=== PATIENT | female | born 1980 | race Caucasian/White ===

== ENCOUNTER 2020-10-03 21:53 | Inpatient (IN) | payer BC ==
[~2020-10-03] VITALS: Ht 167.6 cm; Wt 71.8 kg
[2020-10-03] MEDS ORDERED: MISOPROSTOL 200 MCG TABLET ONE (22:09)
[2020-10-03] MEDS ORDERED: LIDOCAINE 1%, 20ML ONE (22:09)
[2020-10-03] MEDS ORDERED: NEWBORN KIT ONE (22:09)
[2020-10-03] MEDS ORDERED: OXYTOCIN 30U/ 0.9% NaCL 500ML 500 ML ONE (22:09)
[2020-10-03] MEDS ORDERED: D5%-LACTATED RINGERS 1,000 ML IV SCH (22:30)
[2020-10-03] MEDS ORDERED: ONDANSETRON 2MG/ML, 2ML IVPush PRN (22:30)
[2020-10-03] MEDS ORDERED: FENTANYL PF 100 MCG/2ML IVPush PRN (22:30)
[2020-10-03] MEDS ORDERED: FENTANYL PF 100 MCG/2ML IV PRN (22:30)
[2020-10-03] MEDS ORDERED: TERBUTALINE 1 MG/ML, 1ML IVPush PRN (22:30)
[2020-10-03] MEDS ORDERED: PENICILLIN GK 2,500,000 UNITS in DEXTROSE 5% 100 ML IVPB SCH (22:30)
[2020-10-03] MEDS ORDERED: TERBUTALINE 1 MG/ML, 1ML SQ PRN (22:30)
[2020-10-03] MEDS ORDERED: PENICILLIN GK 5,000,000 UNITS in DEXTROSE 5% 100 ML IVPB ONE (22:30)
[2020-10-03] MEDS ORDERED: LACTATED RINGERS 1,000 ML IV SCH (22:30)
[2020-10-03 22:35] LABS: BASOPHILS % (AUTO) 0 % (0-1); EOSINOPHILS % (AUTO) 0 % (1-7); LYMPHOCYTES % (AUTO) 4 % (22-44); MD NO; MEAN CORPUSCULAR HEMOGLOBIN 32.5 pg (27.0-34.8); MEAN CORPUSCULAR HGB CONC 34.6 g/dL (32.4-35.8); MEAN PLATELET VOLUME 8.4 fL (7.4-10.4); MONOCYTES % (AUTO) 4 % (2-9); NEUTROPHILS % (AUTO) 92 % (42-75); PLATELET COUNT 223 x10^3/uL (130-400); RED CELL DISTRIBUTION WIDTH 13.3 % (9.6-15.2)
[2020-10-03] MEDS: OXYTOCIN 30U/ 0.9% NaCL 500ML 500 ML IV SCH (23:23)
[2020-10-04] MEDS ORDERED: OXYcodone IR 5MG TABLET PO PRN
[2020-10-04] MEDS ORDERED: ACETAMINOPHEN 325 MG TABLET PO PRN
[2020-10-04] MEDS ORDERED: ONDANSETRON 2MG/ML, 2ML IV PRN
[2020-10-04] MEDS ORDERED: MISOPROSTOL 200 MCG TABLET PR PRN
[2020-10-04] MEDS ORDERED: SIMETHICONE 80 MG CHEW TAB PO PRN
[2020-10-04] MEDS: IBUPROFEN 800 MG TABLET PO PRN (00:11)
[2020-10-04] MEDS: OXYTOCIN 30U/ 0.9% NaCL 500ML 500 ML IV SCH ×11 (01:19→13:24)
[2020-10-04 02:15] VITALS: BP 125/82
[2020-10-04 06:05] VITALS: BP 118/80
[2020-10-04 07:24] LABS: BASOPHILS % (AUTO) 1 % (0-1); EOSINOPHILS % (AUTO) 0 % (1-7); LYMPHOCYTES % (AUTO) 7 % (22-44); MEAN CORPUSCULAR HEMOGLOBIN 32.4 pg (27.0-34.8); MEAN CORPUSCULAR HGB CONC 34.2 g/dL (32.4-35.8); MONOCYTES % (AUTO) 7 % (2-9); NEUTROPHILS % (AUTO) 85 % (42-75); PLATELET COUNT 203 x10^3/uL (130-400); RED BLOOD COUNT 3.11 x10^6/uL (3.82-5.3)
[2020-10-04 07:56] LABS: MD SCAN
[2020-10-04 08:00] VITALS: BP 116/72
[2020-10-04] MEDS: DOCUSATE 100 MG CAPSULE PO PRN (08:09)
[2020-10-04] MEDS: PRENATAL VIT/IRON/FA 1 EACH TABLET PO SCH (08:20)
[2020-10-04 12:00] VITALS: BP 117/77
[2020-10-04 16:00] VITALS: BP 114/72
[2020-10-04 20:30] VITALS: BP 115/67
[2020-10-05] VITALS: BP 112/68
[2020-10-05 07:35] VITALS: BP 108/65
[2020-10-05] MEDS: PRENATAL VIT/IRON/FA 1 EACH TABLET PO SCH (09:00)
[2020-10-05] MEDS ORDERED: IBUP-1223 PO (09:02)
[2020-10-05] MEDS ORDERED: DOCU-131 PO (09:03)
[2020-10-05] MEDS: IBUPROFEN 800 MG TABLET PO PRN ×2 (10:55→18:32)
[2020-10-05] MEDS: DOCUSATE 100 MG CAPSULE PO PRN (10:55)
== END 2020-10-05 18:20 | disposition home or self-care (01) | DRG 768 ==
LOC: LDOP 21:53 → LDIP 22:05 → 2NW 10-04 01:59
PROVIDERS: ADMIT Obstetrics & Gynecology; ATTEND Obstetrics & Gynecology
PROC: 0U7C7ZZ Dilation of Cervix, Via Natural or Artificial Opening (ICD-10-PCS; principal; 2020-10-03)
PROC: 0DQR0ZZ Repair Anal Sphincter, Open Approach (ICD-10-PCS; 2020-10-03)
PROC: 10E0XZZ Delivery of Products of Conception, External Approach (ICD-10-PCS; 2020-10-03)
PROC: 3E0R3BZ Introduction of Anesthetic Agent into Spinal Canal, Percutaneous Approach (ICD-10-PCS; 2020-10-03)
PROC: 00HU33Z Insertion of Infusion Device into Spinal Canal, Percutaneous Approach (ICD-10-PCS; 2020-10-03)
DX: O09.513 Supervision of elderly primigravida, third trimester (principal); Z37.0 Single live birth; O70.20 Third degree perineal laceration during delivery, unspecified; Z3A.40 40 weeks gestation of pregnancy; O99.820 Streptococcus B carrier state complicating pregnancy; Z20.822 Contact with and (suspected) exposure to COVID-19
CPT/HCPCS: 36415; 85025; 86592; 86850; 86900; 87635; G0378; J2540; J2590